=== PATIENT | female | born 1970 | race Caucasian/White ===

== ENCOUNTER → 2021-08-04 | Outpatient (CLI) | payer OTHER | LOC: KOH-I 13:38 | DX: M79.672 Pain in left foot (principal); M79.671 Pain in right foot | CPT/HCPCS: 73630 ==

== ENCOUNTER → 2021-08-12 | Outpatient (CLI) | payer OTHER | LOC: NM 08-10 07:59 | DX: L97.511 Non-pressure chronic ulcer of other part of right foot limited to breakdown of skin (principal); I73.9 Peripheral vascular disease, unspecified; M86.8X7 Other osteomyelitis, ankle and foot; M79.661 Pain in right lower leg | CPT/HCPCS: 78315; 93925; A9503 ==

== ENCOUNTER → 2021-11-02 | Outpatient (CLI) | payer OTHER ==
[~2021-11-02] MED LIST: ALDACTONE50 MG PO; ARTHRITIS PAIN150 GM TP; ATENOLOL25 MG PO; BREZTRI AEROS10.7 GM INH; BUPROPION HCL100 MG PO; BUSPIRONE HCL30 MG PO; DULOXETINE HCL30 MG PO; FAMOTIDINE20 MG PO; FLUOXETINE HCL40 MG PO; KLONOPIN0.5 MG PO; LAMICTAL TAB 1100 MG PO; LASIX 40 MG TAB40 MG PO; LYRICA100 MG PO; PROTONIX 40 MG40 M1 PO; REXULTI0.5 MG PO; TRAZODONE HCL100 MG PO; ULTRAM50 MG PO; VITAMIN D31250 MCG PO
[2021-11-02 14:08] LABS: HEMOGLOBIN 11.5 gm/dl (12.3-15.3); RED BLOOD COUNT 4.03 M/UL (4.00-5.10); WHITE BLOOD COUNT 5.4 K/UL (4.5-11.0)
== END ==
LOC: OPSV2 12:30
PROVIDERS: Podiatrist Foot & Ankle Surgery
DX: Z01.818 Encounter for other preprocedural examination (principal); M21.611 Bunion of right foot
CPT/HCPCS: 36415; 80048; 85027; 85610; 85730; 93005

== ENCOUNTER → 2021-11-18 | Day surgery (SDC) | payer OTHER ==
[~2021-11-18] VITALS: Ht 167.6 cm; Wt 67.6 kg
== END | disposition home or self-care (01) ==
LOC: OR 11-11 08:45
DX: M21.611 Bunion of right foot (principal); L89.899 Pressure ulcer of other site, unspecified stage; I10 Essential (primary) hypertension; F17.210 Nicotine dependence, cigarettes, uncomplicated; K21.9 Gastro-esophageal reflux disease without esophagitis; J44.9 Chronic obstructive pulmonary disease, unspecified; M19.90 Unspecified osteoarthritis, unspecified site; F41.9 Anxiety disorder, unspecified; F43.10 Post-traumatic stress disorder, unspecified; F32.A Depression, unspecified; Z79.899 Other long term (current) drug therapy
CPT/HCPCS: 73630; 76000; C1713; J0690; J1100; J1885; J2001; J2405; J2704; J2795; J3010; J3370; J7120

== ENCOUNTER → 2021-12-24 | Outpatient (CLI) | payer OTHER | LOC: KOH-I 14:20 | DX: M79.671 Pain in right foot (principal); Z98.890 Other specified postprocedural states | CPT/HCPCS: 73630 ==

== ENCOUNTER → 2022-02-04 | Outpatient (CLI) | payer OTHER | LOC: KOH-I 13:34 | DX: M79.671 Pain in right foot (principal) | CPT/HCPCS: 73630 ==